=== PATIENT | male | born 1940 | race Caucasian/White ===

== ENCOUNTER 2016-10-01 20:57 | Inpatient (IN) | payer OTHER, BC ==
[~2016-10-01] VITALS: Ht 177.8 cm; Wt 75.9 kg
[2016-10-01] MEDS ORDERED: SODIUM CHLORIDE 0.9% 1000ML 1,000 ML IV SCH (21:47)
--- NOTE | 2016-10-01 22:15 | DIAGNOSTIC IMAGING REPORT ---
SINGLE VIEW CHEST CLINICAL HISTORY: Strokelike symptoms. Blurry vision. FINDINGS: An AP, portable, upright chest radiograph is obtained. No prior studies are available for comparison at the time of dictation. The examination is degraded by portable technique and patient rotation. The heart is enlarged and there is atherosclerotic calcification of the thoracic aorta. The pulmonary vasculature is noncongested. Nonspecific interstitial thickening is noted. There is minimal bibasilar atelectasis. No airspace consolidation, large pleural effusion, or pneumothorax is seen. The skeletal structures are osteopenic. The bony thorax is grossly intact. IMPRESSION: Cardiomegaly with no acute cardiopulmonary abnormality. Electronically signed by: Moo sEpinal M.D. 10/01/2016 10:14 PM Dictated Date/Time: 10/01/2016 10:13 PM
--- NOTE | 2016-10-01 22:58 | DIAGNOSTIC IMAGING REPORT ---
CT SCAN OF THE BRAIN WITHOUT IV CONTRAST CLINICAL HISTORY: Diplopia. Stroke like symptoms. COMPARISON STUDY: No priors. TECHNIQUE: Unenhanced axial CT scan of the brain is performed from the vertex to the skull base. CT DOSE: 679.75 mGycm FINDINGS: Brain parenchyma: There are age-related involutional changes noting [id number] patchy subcortical and periventricular microangiopathic change. There is no hemorrhage, mass effect, or evidence of acute territorial ischemia by CT criteria. Delacruz-white matter is preserved. No extra-axial fluid collection is seen. Ventricles, sulci, cisterns: Prominent secondary to involutional change. Intracranial vasculature: There is atherosclerotic calcification of the cavernous carotid arteries. Calvarium: Unremarkable. Sinuses and mastoids: The visualized paranasal sinuses are clear. The mastoid air cells are well pneumatized. Orbits: The bony orbits are grossly intact. IMPRESSION: There is no hemorrhage, mass effect, or evidence of acute territorial ischemia by CT criteria. Electronically signed by: Moo Espinal M.D. 10/01/2016 10:56 PM Dictated Date/Time: 10/01/2016 10:54 PM
[2016-10-01] MEDS ORDERED: AMLO-114 PO (23:04)
[2016-10-01] MEDS ORDERED: [UNRECOGNIZED DRUG - CODE] PO (23:04)
[2016-10-01] MEDS ORDERED: CHOL1000 PO (23:04)
[2016-10-01] MEDS ORDERED: MULT-513 PO (23:04)
[2016-10-01 23:41] LABS: BASO % 0.4 %; BASO ABS # 0.03 K/uL (0-0.2); COMPLETE YES; EOS % 4.4 %; HEMATOCRIT 37.2 % (42-52); IG% 0.3 %; LYMPH % 28.6 %; LYMPH ABS # 2.01 K/uL (1.2-3.4); MEAN CORPUSCULAR HEMOGLOBIN 30.3 pg (25-34); MEAN CORPUSCULAR HGB CONC 33.3 g/dl (32-36); MEAN PLATELET VOLUME 9.8 fL (7.4-10.4); MONO % 10.5 %; NEUT % 55.8 %; PLATELET COUNT 277 K/uL (130-400); RED BLOOD COUNT 4.09 M/uL (4.7-6.1); WHITE BLOOD COUNT 7.02 K/uL (4.8-10.8)
[2016-10-01 23:57] LABS: BLOOD UREA NITROGEN 21 mg/dl (7-18); BUN/CREATININE RATIO 22.6 (10-20); CARBON DIOXIDE 31 mmol/L (21-32); CHLORIDE 109 mmol/L (98-107); CREATININE 0.95 mg/dl (0.60-1.40); GLUCOSE 93 mg/dl (70-99); POTASSIUM 3.8 mmol/L (3.5-5.1); SODIUM 146 mmol/L (136-145)
[2016-10-02] VITALS (9 sets, daily range): BP systolic 133–162; BP diastolic 68–78; PULSE 61–73; TEMP 36.4–36.8; O2SAT 96–98; Ht 177.8 cm; Wt 75.9 kg
[2016-10-02 01:07] LABS: LYME DISEASE AB IGG POS (NEG); LYME DISEASE AB IGM POS (NEG)
[2016-10-02] MEDS ORDERED: CEFTRIAXONE SOD INJ 1 GM ADDVIAL IV STA (02:19)
--- NOTE | 2016-10-02 02:28 | EMERGENCY ROOM VISIT NOTE ---
History Report prepared by Bul: Humaira Jasmine Under the Supervision of: Dr. Larry Smiley M.D. First contact with patient: 21:32 Chief Complaint: RASH Stated Complaint: RASH AND BLURRED VISION History of Present Illness The patient is a 76 year old male who presents to the Emergency Room with complaints of persistent double vision that started 2 days ago. The double vision is worse with objects further away and when he looks to his right. The double vision resolves when he covers either eye. He states that his vision is blurry secondary to the double vision, but he denies any loss of vision. He denies difficulty swallowing, difficulty speaking, swelling in his tongue or throat, chest pain, shortness of breath, and one-sided numbness or weakness. The patient states that he started experiencing a generalized body rash 2 weeks ago. The rash is pruritic with the exception of the section on his left leg. He states that he had very large blisters on it that have now resolved. He states that the rash does not burn. He denies being in the [place] recently with potential exposures for contact with poison enrrique or poison oak. He was diagnosed with shingles 2 days ago at an Urgent Care in [place]. They prescribed him Valtrex and prednisone. He started to experience double vision 2 days ago after he took his first dose of those medications. He states that he did not take the medications today because he thought they might be contributing to his symptoms. The patient's adds that they were down visiting their son in [place] at the beginning of September and the patient was doing work in the attic. She states that the patient started to experience a headache, fever, and generalized body aches for 2 days after being in the attic. The symptoms resolved but then he went back into the attic and they came back for a day before they resolved again. However, the patient's states that the headache has not resolved. He describes the headache as a dull ache in the frontal region. The patient is on 10 mg of Amlodipine for hypertension. Source of History: patient, spouse/significant other (significant other) Onset: 2 days ago Position: eye (bilateral) Quality: other (double vision) Timing: other (persistent) Modifying Factors (Worsening): other (far away, looking to the right) Modifying Factors (Relieving): other (covering one eye) Associated Symptoms: + headache (dull ache), + rash (generalized, pruritic except on left leg, not burning), No SOB, No chest pain, No numbness (one-sided) , No weakness (one-sided) Note: blurry vision secondary to double vision, no loss of vision, no difficulty swallowing, no difficulty speaking, no swelling in his tongue or throat Review of Systems See HPI for pertinent positives & negatives. A total of 10 systems reviewed and were otherwise negative. Past Medical & Surgical Medical Problems: (1) Hypertension Family History Cancer Diabetes mellitus Heart disease Hypertension Lung disease Social History Smoking Status: Never Smoker Marital Status: Housing Status: lives with family Current/Historical Medications Scheduled Amlodipine (Norvasc), 10 MG PO DAILY Cholecalciferol (Vitamin D3), 1 TAB PO DAILY Multivitamins/Minerals (Mvi With Minerals), 1 TAB PO DAILY [Pomi-T], 1 TAB PO DAILY Allergies Coded Allergies: Hydrochlorothiazide (Verified Allergy, Intermediate, RASH, 10/01/16) Losartan (Verified Adverse Reaction, Intermediate, COUGH, 10/01/16) Physical Exam Vital Signs Date Time Temp Pulse Resp B/P Pulse Ox O2 Delivery O2 Flow Rate FiO2 10/02/16 02:12 64 16 159/78 98 Room Air 10/02/16 01:15 64 16 135/73 98 Room Air 10/02/16 00:17 68 21 155/78 99 Room Air 10/01/16 23:12 65 21 141/78 98 Room Air 10/01/16 22:57 69 19 165/72 98 Room Air 10/01/16 22:19 67 20 141/71 97 Room Air 10/01/16 22:14 67 10/01/16 21:54 97 Room Air 10/01/16 21:04 36.6 67 18 149/82 95 Room Air Physical Exam Constitutional: Vital signs reviewed. Eyes: Pupils are equal round reactive to light. Conjunctiva are noninjected. ENT: Pharynx is clear without erythema or exudate. Mucous membranes are moist. Neck supple without meningeal signs. Respiratory: Clear to auscultation bilaterally. Breath sounds are equal bilaterally. Cardiovascular: Regular rate and rhythm. No rubs or gallops. GI: Soft, nondistended and nontender. Bowel sounds are present. Musculoskeletal: No peripheral edema. No lower extremity tenderness. Integumentary: Diffuse urticarial rash to the trunk and extremities sparing the palms and soles. No mucosal lesions. No vesicles or bullae. There are areas of central clearing without a bull's-eye over the arms and legs. The rash appears coalesced over the trunk and the lower back. The rash is blanchable but not over the lower extremities distal to the knee. No purpura. Neurologic: The patient is awake and alert. Cranial nerves II-XII are intact except for right abducens nerve palsy. He has double vision with rightward gaze which resolves on leftward case. Motor is 5 out of 5 all extremities. Sensation is intact to light touch all extremities. Normal speech. Normal gait. No pronator drift. No limb ataxia. Normal visual larry tested by confrontation. Psychiatric: Normal affect. Medical Decision & Procedures ER Provider Diagnostic Interpretation: Radiology results as stated below per my review and the radiologist's interpretation: SINGLE VIEW CHEST FINDINGS: An AP, portable, upright chest radiograph is obtained. No prior studies are available for comparison at the time of dictation. The examination is degraded by portable technique and patient rotation. The heart is enlarged and there is atherosclerotic calcification of the thoracic aorta. The pulmonary vasculature is noncongested. Nonspecific interstitial thickening is noted. There is minimal bibasilar atelectasis. No airspace consolidation, large pleural effusion, or pneumothorax is seen. The skeletal structures are osteopenic. The bony thorax is grossly intact. IMPRESSION: Cardiomegaly with no acute cardiopulmonary abnormality. Electronically signed by: Moo Espinal M.D. 10/01/2016 10:14 PM Dictated Date/Time: 10/01/2016 10:[address] SCAN OF THE BRAIN WITHOUT IV CONTRAST FINDINGS: Brain parenchyma: There are age-related involutional changes noting [id number] patchy subcortical and periventricular microangiopathic change. There is no hemorrhage, mass effect, or evidence of acute territorial ischemia by CT criteria. Delacruz-white matter is preserved. No extra-axial fluid collection is seen. Ventricles, sulci, cisterns: Prominent secondary to involutional change. Intracranial vasculature: There is atherosclerotic calcification of the cavernous carotid arteries. Calvarium: Unremarkable. Sinuses and mastoids: The visualized paranasal sinuses are clear. The mastoid air cells are well pneumatized. Orbits: The bony orbits are grossly intact. IMPRESSION: There is no hemorrhage, mass effect, or evidence of acute territorial ischemia by CT criteria. Electronically signed by: Moo Espinal M.D. 10/01/2016 10:56 PM Dictated Date/Time: 10/01/2016 10:54 PM Laboratory Results 10/01/16 23:27 Red Blood Count 4.09, Mean Corpuscular Volume 91.0, Mean Corpuscular Hemoglobin 30.3, Mean Corpuscular Hemoglobin Concent 33.3, Mean Platelet Volume 9.8, Neutrophils (%) (Auto) 55.8, Lymphocytes (%) (Auto) 28.6, Monocytes (%) (Auto) 10.5, Eosinophils (%) (Auto) 4.4, Basophils (%) (Auto) 0.4, Neutrophils # (Auto ) 3.91, Lymphocytes # (Auto) 2.01, Monocytes # (Auto) 0.74, Eosinophils # (Auto ) 0.31, Basophils # (Auto) 0.03 10/01/16 23:27 Test 10/01/16 21:59 10/01/16 22:02 10/01/16 23:27 Bedside Glucose 114 mg/dl (70-99) Bedside Prothrombin Time INR 1.1 (0.9-1.1) White Blood Count 7.02 K/uL (4.8-10.8) Red Blood Count 4.09 M/uL (4.7-6.1) Hemoglobin 12.4 g/dL (14.0-18.0) Hematocrit 37.2 % (42-52) Mean Corpuscular Volume 91.0 fL (80-100) Mean Corpuscular Hemoglobin 30.3 pg (25-34) Mean Corpuscular Hemoglobin Concent 33.3 g/dl (32-36) Platelet Count 277 K/uL (130-400) Mean Platelet Volume 9.8 fL (7.4-10.4) Neutrophils (%) (Auto) 55.8 % Lymphocytes (%) (Auto) 28.6 % Monocytes (%) (Auto) 10.5 % Eosinophils (%) (Auto) 4.4 % Basophils (%) (Auto) 0.4 % Neutrophils # (Auto) 3.91 K/uL (1.4-6.5) Lymphocytes # (Auto) 2.01 K/uL (1.2-3.4) Monocytes # (Auto) 0.74 K/uL (0.11-0.59) Eosinophils # (Auto) 0.31 K/uL (0-0.5) Basophils # (Auto) 0.03 K/uL (0-0.2) RDW Standard Deviation 46.5 fL (36.4-46.3) RDW Coefficient of Variation 14.1 % (11.5-14.5) Immature Granulocyte % (Auto) 0.3 % Immature Granulocyte # (Auto) 0.02 K/uL (0.00-0.02) Prothrombin Time 11.0 SECONDS (9.0-12.0) Prothromb Time International Ratio 1.0 (0.9-1.1) Activated Partial Thromboplast Time 25.4 SECONDS (21.0-31.0) Partial Thromboplastin Ratio 1.0 Anion Gap 6.0 mmol/L (3-11) Est Creatinine Clear Calc Drug Dose 66.2 ml/min Estimated GFR () 88.5 Estimated GFR (Non- 76.4 BUN/Creatinine Ratio 22.6 (10-20) Calcium Level 8.0 mg/dl (8.5-10.1) Total Creatine Kinase 52 U/L (39-308) Creatine Kinase MB 2.6 ng/ml (0.5-3.6) Creatine Kinase MB Ratio 5.0 (0-3.0) Troponin I < 0.015 ng/ml (0-0.045) Lyme Disease IgG Antibody POS (NEG) Laboratory results as reviewed by me. Medications Administered Medications (Trade) Dose Ordered Sig/Lety Route Start Time Stop Time Status Last Admin Dose Admin Sodium Chloride (Nss 1000ml) 1,000 ml @ 50 mls/hr Q20H IV 10/01/16 21:47 10/31/16 21:46 10/01/16 23:00 50 MLS/HR ECG Indication: other (neuro symptoms) Rate (beats per minute): 66 Rhythm: sinus rhythm Findings: no acute ischemic change, other (APC) ED Course 2133: The patient was evaluated in room C6. A complete history and physical exam was performed. 2146: Ordered Sodium Chloride 1000 ml @ 50 mls/hr IV 3: I reassessed the patient and updated her on her test results. We are still waiting for his blood work. 3: Upon reevaluation, the patient appeared to be resting comfortably. I discussed tonight's findings with him. He wanted to go home initially and have a MRI tomorrow, but after discussion he has agreed to stay in the hospital. He verbalized agreement of the treatment plan. He will be evaluated for further management. 0004: I spoke with Dr. Galindo of the [facility]. We discussed the patient and his results. The patient will be further evaluated by him. 0143: I updated the patient on the remainder of his test results, including his positive Lyme test. 0151: I was going to consult Infectious Disease, but it is being covered by Dr. Duncan, who is a industrial production manager. Medical Decision this is a 76-year-old male who presents with a rash, headache and double vision.differential diagnosis includes intracranial hemorrhage, intracranial mass, CVA, metabolic derangement, meningitis, encephalitis. I did perform a limited focused review of portions of the patient's old chart on the electronic medical record. The patient has had no recent pertinent visits to this hospital. Medication Reconciliation: I attest that I have personally reviewed the patient' s current medication list. Blood Pressure Screening: Patient was found to have an elevated blood pressure and was referred to their primary doctor for recheck and further treatment. I did evaluate the patient as noted above. The patient has a diffuse rash which is not consistent with zoster. He does not have a slight rash but states that he did have symptoms consistent with Lyme several weeks ago when he was visiting [place] and cleaning out his son's attic. He also lives in an area with a lot of ticks but denies any tick bites. He has had a frontal headache for several weeks but does not have any meningeal signs. IV access was established. The patient was placed on a continuous surveillance system monitor. I did order and personally review the patient's 12-lead EKG and chest x-ray as described above. There is no evidence of heart block. I did order and review the patient's blood work as noted in the electronic medical record. Lyme testing did come back positive. I did order a CT of the head. I did review the images myself as well as the radiology report as described above. There is no evidence of CVA. I did discuss the test results with the patient. I did recommend hospitalization for further workup of his symptoms. I did not feel that a lumbar puncture was safe at this time given that he has the rash over his lower back where the spinal needle would be inserted. The exact cause of the rash is unclear at this time and I did not want to introduce infection by performing lumbar puncture. The rash is not typical for Lyme disease. I did attempt to call infectious disease but they were not available. I did order an MRI and MRA of the brain. I did discuss the case with Dr. Galindo who will admit the patient to the hospital. He agrees with not doing the lumbar puncture at this time and recommended we start him on ceftriaxone. I did discuss the plan with the patient and his . I did treat the patient with IV ceftriaxone. He will be hospitalized for further evaluation. Consults Time Called: 2146 Consulting Physician[facility] Return[facility] Call: [phone] Galindo of the [facility]. We discussed the patient and his results. The patient will be further evaluated by him. Impression Primary Impression: Diplopia Additional Impressions: Rash Lyme disease Scribe Attestation The scribe's documentation has been prepared under my direct and personally reviewed by me in its entirety. I confirm that the note above accurately reflects all work, treatment, procedures, and medical decision making performed by me. Departure Information Dispostion Being Evaluated By Hospitalist Referrals Donald Noel D.O. (PCP) Patient Instructions [facility] Problem Qualifiers
[2016-10-02] MEDS ORDERED: CEFTRIAXONE SOD INJ 2000 MG in DEXTROSE 5% 50ML IV STA (02:46)
[2016-10-02] MEDS ORDERED: SODIUM CHLORIDE 0.45% 1000ML 1,000 ML IV SCH (03:00)
[2016-10-02] MEDS ORDERED: LORAZEPAM 2 MG/ML 1 ML VIAL IV STA (03:15)
[2016-10-02] MEDS ORDERED: LORAZEPAM 2 MG/ML 1 ML VIAL ONE (03:15)
--- NOTE | 2016-10-02 03:15 | History and Physical ---
History & Physical Date & Time of Service: October 02, 2016 at 03:03 Chief Complaint: Rash And Blurred Vision Primary Care Physician: Donald Noel D.O. History of Present Illness Source: patient, family, hospital records 76 year old male with hypertension presents with double vision and generalized rash. Follows with Dr. Noel for PCP. Patient was at his usual state of health until last week of August 2016, two days after arriving in [place], patient developed flu like symptoms- fever, headache, malaise. Symptoms resolved after a few days but would intermittently recur. During the first week of September, patient noticed circular rash on his chest and back, which later on moved and affected his arms, legs, abdomen. Two days ago, patient started to experience double vision but no other focal neurologic deficits or confusion. Denies joint pains. At the ER, CT head was unremarkable. Lyme screen was positive. He was started on Ceftriaxone IV. On exam, patient seen resting comfortably in bed, somewhat anxious. Has mild headache, no chest pain, dyspnea, palpitations, dizziness. No other symptoms. Past Medical/Surgical History Medical Problems: (1) Hypertension Status: Chronic Family History Cancer Diabetes mellitus Heart disease Hypertension Lung disease Social History Smoking Status: Never Smoker Smokeless Tobacco Use: No Alcohol Use: none Drug Use: none Marital Status: Allergies Coded Allergies: Hydrochlorothiazide (Verified Allergy, Intermediate, RASH, 10/01/16) Losartan (Verified Adverse Reaction, Intermediate, COUGH, 10/01/16) Home Medications Scheduled Amlodipine (Norvasc), 10 MG PO DAILY Cholecalciferol (Vitamin D3), 1 TAB PO DAILY Multivitamins/Minerals (Mvi With Minerals), 1 TAB PO DAILY [Pomi-T], 1 TAB PO DAILY Review of Systems Constitutional- (+) as noted above Eyes- (+) as noted above ENT- no sinus drainage; no pharyngitis Pulmonary- no cough, no wheezing, no shortness of breath Cardiac- no chest pain, no palpitations, no orthopnea, no dependent edema GI- no nausea, no vomiting, no diarrhea, no melena, no hematochezia - no dysuria, no hematuria Musculoskeletal- no arthralgias, no myalgias Derm- (+) as noted above Hematologic- no unusual bruising, no unusual bleeding Lymphatics- no adenopathy Endocrine- no polyuria or polydipsia; no heat or cold intolerance Neuro- no headaches, no focal neurologic symptoms Psych- no anxiety, no depression Physical Exam Vital Signs Date Time Temp Pulse Resp B/P Pulse Ox O2 Delivery O2 Flow Rate FiO2 10/02/16 02:12 64 16 159/78 98 Room Air 10/02/16 01:15 64 16 135/73 98 Room Air 10/02/16 00:17 68 21 155/78 99 Room Air 10/01/16 23:12 65 21 141/78 98 Room Air 10/01/16 22:57 69 19 165/72 98 Room Air 10/01/16 22:19 67 20 141/71 97 Room Air 10/01/16 22:14 67 10/01/16 21:54 97 Room Air 10/01/16 21:04 36.6 67 18 149/82 95 Room Air General Appearance: WD/WN, no apparent distress Head: normocephalic, atraumatic Eyes: PERRL, sclerae normal, + pertinent finding (poor lateral ocular movement right) ENT: normal ENT inspection, hearing grossly normal, pharynx normal Neck: supple, no adenopathy, thyroid normal, no JVD Respiratory/Chest: chest non-tender, lungs clear, normal breath sounds, no respiratory distress, no accessory muscle use Cardiovascular: regular rate, rhythm, no edema, no gallop, no JVD, no murmur, normal peripheral pulses Abdomen/GI: normal bowel sounds, non tender, soft Back: normal inspection, no CVA tenderness Extremities/Musculoskelatal: normal inspection, no calf tenderness, normal capillary refill, no pedal edema Neurologic/Psych: no motor/sensory deficits, alert, normal mood/affect, oriented x 3, + abnormal landscaping supervisor II-XII (diplopia, limited lateral eye movement, right) Skin: normal color, + pertinent finding ((+) diffuse maculopapular lesions on the lower back, chest, abdomen, forearms, legs) Lymphatic: no adenopathy Diagnostics Laboratory Results Results Past 24 Hours Test 10/01/16 21:59 10/01/16 22:02 10/01/16 23:27 Range/Units Bedside Glucose 114 70-99 mg/dl Bedside Prothrombin Time INR 1.1 0.9-1.1 White Blood Count 7.02 4.8-10.8 K/uL Red Blood Count 4.09 4.7-6.1 M/uL Hemoglobin 12.4 14.0-18.0 g/dL Hematocrit 37.2 42-52 % Mean Corpuscular Volume 91.0 80-100 fL Mean Corpuscular Hemoglobin 30.3 25-34 pg Mean Corpuscular Hemoglobin Concent 33.3 32-36 g/dl Platelet Count 277 130-400 K/uL Mean Platelet Volume 9.8 7.4-10.4 fL Neutrophils (%) (Auto) 55.8 % Lymphocytes (%) (Auto) 28.6 % Monocytes (%) (Auto) 10.5 % Eosinophils (%) (Auto) 4.4 % Basophils (%) (Auto) 0.4 % Neutrophils # (Auto) 3.91 1.4-6.5 K/uL Lymphocytes # (Auto) 2.01 1.2-3.4 K/uL Monocytes # (Auto) 0.74 0.11-0.59 K/uL Eosinophils # (Auto) 0.31 0-0.5 K/uL Basophils # (Auto) 0.03 0-0.2 K/uL RDW Standard Deviation 46.5 36.4-46.3 fL RDW Coefficient of Variation 14.1 11.5-14.5 % Immature Granulocyte % (Auto) 0.3 % Immature Granulocyte # (Auto) 0.02 0.00-0.02 K/uL Prothrombin Time 11.0 9.0-12.0 SECONDS Prothromb Time International Ratio 1.0 0.9-1.1 Activated Partial Thromboplast Time 25.4 21.0-31.0 SECONDS Partial Thromboplastin Ratio 1.0 Sodium Level 146 136-145 mmol/L Potassium Level 3.8 3.5-5.1 mmol/L Chloride Level 109 98-107 mmol/L Carbon Dioxide Level 31 21-32 mmol/L Anion Gap 6.0 3-11 mmol/L Blood Urea Nitrogen 21 7-18 mg/dl Creatinine 0.95 0.60-1.40 mg/dl Est Creatinine Clear Calc Drug Dose 66.2 ml/min Estimated GFR () 88.5 Estimated GFR (Non- 76.4 BUN/Creatinine Ratio 22.6 10-20 Random Glucose 93 70-99 mg/dl Calcium Level 8.0 8.5-10.1 mg/dl Total Creatine Kinase 52 39-308 U/L Creatine Kinase MB 2.6 0.5-3.6 ng/ml Creatine Kinase MB Ratio 5.0 0-3.0 Troponin I < 0.015 0-0.045 ng/ml Lyme Disease IgG Antibody POS NEG Lyme Disease IgM Antibody POS NEG Diagnostic Radiology CT head There is no hemorrhage, mass effect, or evidence of acute territorial ischemia by CT criteria. EKG HR 66, sinus rhythm with PVCs Impression Assessment and Plan 76 year old male with hypertension presents with double vision and generalized rash. POSSIBLE EARLY DISSEMINATED LYME DISEASE - (+) rash, diplopia - Lyme screen positive - Ceftriaxone 2gIV daily - ID and Neuro consulted HYPERTENSION continue Amlodipine DVT prophylaxis SCDs Full code per patient Disposition anticipate d/c home when medically stable VTE Prophylaxis VTE Risk Assessment Done? Y/N: Yes Risk Level: Low
[2016-10-02] MEDS ORDERED: GADAVIST IV PRN (05:00)
[2016-10-02] MEDS: CEROVITE ADV FORMULA TAB PO SCH (08:45)
[2016-10-02] MEDS: AMLODIPINE BESYLATE 5 MG TAB PO SCH (08:45)
--- NOTE | 2016-10-02 09:26 | Progress Note ---
Progress Note Date of Service October 02, 2016. Progress Note ID Consult Dictated #[id number] A/P: 1. Lyme Disease -continue rocephin for now -await MRI/neuro eval -If no neuro involvement could transition to po doxy upon d/c for total 28 days -thank you
[2016-10-02 10:00] LABS: BUN/CREATININE RATIO 17.7 (10-20); CALCIUM 8.4 mg/dl (8.5-10.1); CREATININE 0.96 mg/dl (0.60-1.40); POTASSIUM 3.7 mmol/L (3.5-5.1)
--- NOTE | 2016-10-02 10:01 | DIAGNOSTIC IMAGING REPORT ---
ADDENDUM Addendum: The matter T2 hyperintense foci are nonspecific but there are numerous scattered foci of signal intensity which affects the subcortical U fibers. This distribution is not typical for small vessel disease and raises the possibility of a demyelinating process and differential considerations include an infectious disease such as Lyme disease or less likely ADEM/multiple sclerosis. Discussed with Dr. Farrell at time of dictation. Electronically signed by: Triston Gunderson M.D. 10/02/2016 11:16 AM Dictated Date/Time: 10/02/2016 10:06 AM ORIGINAL REPORT MRI OF THE BRAIN WITHOUT AND WITH IV CONTRAST CLINICAL HISTORY: Blurred vision. Rash. Evaluate for stroke or encephalitis. COMPARISON STUDY: CT October 02, 2016. TECHNIQUE: Utilizing a 1.5 Merna magnet and dedicated coil, multiplanar, multiecho imaging of the brain was performed pre and postcontrast administration. IV administration of 8 mL of Gadavist contrast was uneventful. FINDINGS: There are no areas of restricted diffusion. No acute intracranial hemorrhage, midline shift or mass effect is present. No intracranial masses or pathologic enhancement is identified. Ventricular system is unremarkable for age. Moderate white matter T2 hyperintense foci suggest small vessel disease. Basilar cisterns are patent. There are no extra axial collections. There is minimal mucosal thickening of the ethmoid sinuses. Flow-voids for the major intracranial vessels are present. IMPRESSION: 1. No acute intracranial findings. 2. No intracranial masses or pathologic enhancement. 3. Moderate white matter T2 hyperintense foci. While nonspecific, these statistically reflect small vessel disease. Electronically signed by: Triston Gunderson M.D. 10/02/2016 10:00 AM Dictated Date/Time: 10/02/2016 9:56 AM
--- NOTE | 2016-10-02 10:06 | DIAGNOSTIC IMAGING REPORT ---
MRA OF THE INTRACRANIAL CIRCULATION WITHOUT CONTRAST CLINICAL HISTORY: Double vision. Rash. COMPARISON STUDY: None. TECHNIQUE: Utilizing a 1.5 Merna magnet and 3-D [id number] technique, unenhanced MRA of the intracranial circulation was obtained. FINDINGS: The bilateral M1, M2, A1 and A2 segments are patent. There is no abrupt vessel cut off. No aneurysm is identified within the intracranial circulation. There is no significant stenosis within the major intracranial vessels. IMPRESSION: Unremarkable MRA of the intracranial circulation. Electronically signed by: Triston Gunderson M.D. 10/02/2016 10:05 AM Dictated Date/Time: 10/02/2016 10:01 AM
--- NOTE | 2016-10-02 10:55 | DIAGNOSTIC IMAGING REPORT ---
MRA OF THE NECK WITH AND WITHOUT CONTRAST CLINICAL HISTORY: Double vision. COMPARISON STUDY: None. TECHNIQUE: Unenhanced and contrast-enhanced MRA of the neck was performed. Injection of 8 mL of Magnevist IV was uneventful. NASCET criteria were utilized to estimate the degree of carotid stenosis. FINDINGS: There is no significant stenosis within the bilateral common carotid, internal carotid or the vertebral arteries. There is no evidence for dissection. Major vasculature of the neck is patent. IMPRESSION: Unremarkable MRA of the neck. No significant stenosis. Electronically signed by: Triston Gunderson M.D. 10/02/2016 10:54 AM Dictated Date/Time: 10/02/2016 10:53 AM
--- NOTE | 2016-10-02 11:47 | Progress Note ---
Internal Med Progress Note Date of Service: October 02, 2016. Provider Documentation: SUBJECTIVE: Seen and examined at bedside. States having frontal headache, persistent double vision. Also states having itchiness of the rash. Denies chest pain, SOB. offers no other complaints. Mental status at baseline. OBJECTIVE: Vital Signs-as noted below Physical Exam: Vitals signs as noted above General Appearance:Moderately built and nourished, no apparent distress Head: normocephalic, Atraumatic Eyes: normal inspection, EOMI, PERRL Neck: supple, Trachea midline Respiratory/Chest: Normal breath sounds, CTA Cardiovascular: S1, S2, No murmur Abdomen/GI:Soft, Non tender, Bowel sounds present Extremities/Musculoskelatal:normal inspection, no edema Neurologic/Psych:AAOX3, grossly no focal neurological deficits Skin:diffuse maculopapular rash on the lower back, chest, abdomen, forearms, legs Lab data as noted below. ASSESSMENT & PLAN: Patient is a 76 yr old male with hypertension presents with double vision and generalized rash. POSSIBLE EARLY DISSEMINATED LYME DISEASE Presents with rash, diplopia Lyme screen positive Continue Ceftriaxone 2g IV daily Appreciate ID input Neuro consulted MRI brain:findings suggestive of demyelinating process Vs infectious: Likely secondary to Lyme disease HYPERTENSION continue Amlodipine DVT Px SCDs Code Status: Full code Disposition Plan to discharge home when medically stable Vital Signs: Date Time Temp Pulse Resp B/P Pulse Ox O2 Delivery O2 Flow Rate FiO2 10/02/16 11:13 36.4 63 20 154/78 97 Room Air 10/02/16 08:00 98 Room Air 10/02/16 07:09 36.5 65 18 162/70 98 Room Air 10/02/16 04:45 36.5 64 18 151/76 97 Room Air 10/02/16 04:40 62 16 167/82 95 10/02/16 03:05 62 16 167/82 95 Room Air 10/02/16 02:12 64 16 159/78 98 Room Air 10/02/16 01:15 64 16 135/73 98 Room Air 10/02/16 00:17 68 21 155/78 99 Room Air 10/01/16 23:12 65 21 141/78 98 Room Air 10/01/16 22:57 69 19 165/72 98 Room Air 10/01/16 22:19 67 20 141/71 97 Room Air 10/01/16 22:14 67 10/01/16 21:54 97 Room Air 10/01/16 21:04 36.6 67 18 149/82 95 Room Air Lab Results: Results Past 24 Hours Test 10/01/16 21:59 10/01/16 22:02 10/01/16 23:27 10/02/16 09:22 Range/Units Bedside Glucose 114 70-99 mg/dl Bedside Prothrombin Time INR 1.1 0.9-1.1 White Blood Count 7.02 4.8-10.8 K/uL Red Blood Count 4.09 4.7-6.1 M/uL Hemoglobin 12.4 14.0-18.0 g/dL Hematocrit 37.2 42-52 % Mean Corpuscular Volume 91.0 80-100 fL Mean Corpuscular Hemoglobin 30.3 25-34 pg Mean Corpuscular Hemoglobin Concent 33.3 32-36 g/dl Platelet Count 277 130-400 K/uL Mean Platelet Volume 9.8 7.4-10.4 fL Neutrophils (%) (Auto) 55.8 % Lymphocytes (%) (Auto) 28.6 % Monocytes (%) (Auto) 10.5 % Eosinophils (%) (Auto) 4.4 % Basophils (%) (Auto) 0.4 % Neutrophils # (Auto) 3.91 1.4-6.5 K/uL Lymphocytes # (Auto) 2.01 1.2-3.4 K/uL Monocytes # (Auto) 0.74 0.11-0.59 K/uL Eosinophils # (Auto) 0.31 0-0.5 K/uL Basophils # (Auto) 0.03 0-0.2 K/uL RDW Standard Deviation 46.5 36.4-46.3 fL RDW Coefficient of Variation 14.1 11.5-14.5 % Immature Granulocyte % (Auto) 0.3 % Immature Granulocyte # (Auto) 0.02 0.00-0.02 K/uL Prothrombin Time 11.0 9.0-12.0 SECONDS Prothromb Time International Ratio 1.0 0.9-1.1 Activated Partial Thromboplast Time 25.4 21.0-31.0 SECONDS Partial Thromboplastin Ratio 1.0 Sodium Level 146 143 136-145 mmol/L Potassium Level 3.8 3.7 3.5-5.1 mmol/L Chloride Level 109 107 98-107 mmol/L Carbon Dioxide Level 31 31 21-32 mmol/L Anion Gap 6.0 5.0 3-11 mmol/L Blood Urea Nitrogen 21 17 7-18 mg/dl Creatinine 0.95 0.96 0.60-1.40 mg/dl Est Creatinine Clear Calc Drug Dose 66.2 65.5 ml/min Estimated GFR () 88.5 87.4 Estimated GFR (Non- 76.4 75.4 BUN/Creatinine Ratio 22.6 17.7 10-20 Random Glucose 93 127 70-99 mg/dl Calcium Level 8.0 8.4 8.5-10.1 mg/dl Total Creatine Kinase 52 39-308 U/L Creatine Kinase MB 2.6 0.5-3.6 ng/ml Creatine Kinase MB Ratio 5.0 0-3.0 Troponin I < 0.015 0-0.045 ng/ml Lyme Disease IgG Antibody POS NEG Lyme Disease IgM Antibody POS NEG
--- NOTE | 2016-10-02 13:26 | PROGRESS NOTE ---
DATE: 10/02/2016 REFERRING PHYSICIAN: Dr. Farrell. HISTORY OF PRESENT ILLNESS: Gilles is a 76 years old, is in the process of moving his primary residence from [place] to [place] and does spend a fair amount of time in the [place] area in his new home. He was visiting in [place] and 2 days after arriving there developed a flu-like illness with fever, headaches, malaise and then started to have a skin rash which began actually in the first week of September. It started on the chest and back and later moved and affected his arms and legs and abdomen, was pruritic and there may have been a bull's eye quality to it at one point. He then developed diplopia which actually began after he returned to [place] and he received some valacyclovir for the presumptive diagnosis of shingles in an emergency carecenter in [place]. He then came to [place], presented to the Emergency Room as this is where his medical care has been rendered in the past and was evaluated. ALyme screen was positive. Subsequent MRI scan with contrast has been negative and he has been placed on ceftriaxone IV. He still has double vision and headaches and little stiffness of his neck and otherwise feels well. The skin rash is still present and pruritic, but he has only had one dose of ceftriaxone. He has never had an illness like this before. He does not recall having a tick bite, but he is familiar with the fact that many patients do not recall the tick bite. He has had no arthritis, no palpitations, no signs that might indicate some myocardial involvement. PAST MEDICAL HISTORY: Reveals hypertension which is the only issue. FAMILY HISTORY: Positive for diabetes, heart disease, hypertension, lung disease. SOCIAL HISTORY: Reveals him to be retired. He does not use alcohol. He has never been a smoker. He is and again is in transition to [place] and [place]. ALLERGIES: HE HAS ALLERGIES TO HYDROCHLOROTHIAZIDE AND LOSARTAN. MEDICATIONS AT HOME: Include Norvasc, cholecalciferol, multivitamins and otherwise none and he does not take even an aspirin a day. REVIEW OF SYSTEMS: Prior to the onset of this illness, was unremarkable, but now he has a little headache. He has double vision. He has some stiffness of his neck. He has a skin rash. He has not had any significant weight loss. He has no other issues involving the head, eyes, ears, nose and throat, cardiovascular, pulmonary, gastrointestinal, genitourinary or musculoskeletal systems. PHYSICAL EXAMINATION: VITAL SIGNS: In the ER, his blood pressure 159/78, pulse was 64, respirations were 16. He was afebrile. GENERAL: He appeared well-developed, well nourished. He had no cranial deformities. HEENT: He had a right lateral rectus palsy with lack of a abduction on attempts at rightward gaze. EXTREMITIES: The extremities were covered by a maculopapular rash, more prominent in the lower extremities, but present in the back as well. There was no particular bull's eye pattern. There was no particular erythema, except over the back where the margins of the rash were a little ill-defined. He had no peripheral edema. Peripheral pulses were fine. ABDOMEN: There were no enlarged liver, or spleen. CARDIAC AND PULMONARY: Normal. NEUROLOGIC: Today neurologically, he is awake, alert, oriented in 3 spheres. Cranial nerves are intact with the exception of lateral rectus palsy. Facial motility and strength is normal. Facial sensation is normal. Tongue protrudes in the midline. Speech is clear. Gait is absolutely normal. There is no spasticity or ataxia. He has no tremor, tics, choreiform activity, drift or pronation sign. Reflexes are 1+ symmetrical. Toes are downgoing. No Shay's signs are seen. Strength is normal and sensation is intact. LABORATORY STUDIES: Significant only for the positive Lyme screen, both IgG and IgM. MRI as noted above shows some nonspecific white matter changes compatible with his age. No meningeal enhancement and nothing in the region of the nerve exit from the brainstem or along its course that would suggest a compression or active inflammation of the nerve itself or in adjacent structures of the skull base or cavernous sinus This may well have been Lyme disease. He could have picked up a tick bite in [place] where the disease is endemic and the latency period between this presumptive exposure and the onset of symptoms 3 weeks later in [place] makes good sense. 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 My recommendations would be to continue the antibiotics at this point and that we get a lumbar puncture at some time during his hospital course, ideally by radiology under fluoro, so we get a clean tap. This will give time as well to see if the skin rash which does involve the lumbar area athrough which a lumbar puncture would have to be performed and possibly introduce a non lyme related infectious process such as bacterial cellulitis. I would like to see what infectious disease has to say. Their note has not been typed. It may be of values as well to have dermatology evaluate the skin lesion as the appearance to me is atypical. I will call back to Dr. Farrell tomorrow about more suggestions and would like to see how the patient has done after a few more courses of ceftriaxone in terms of the symptoms he has ie the headache , stiff neck and how the rash evolves. He may need testing for other tick borne illnesses as well. BRETT
--- NOTE | 2016-10-02 14:58 | INFECT. DISEASE CONSULTATION ---
DATE OF CONSULTATION: 10/02/2016 REQUESTING PHYSICIAN: Prosper Galindo MD HISTORY OF PRESENT ILLNESS: This is a 76-year-old gentleman who was admitted to the hospital with rash. He also is complaining of diffuse arthralgias and myalgias. He did notice in early September that he had a rash on his back and chest which did at the description of bull's-eye rash. He then continued to have additional lesions on his arms and legs. He does admit to multiple recent tick bites. His Lyme screen is positive and confirmatory testing is pending. He has been afebrile since admission. His only complaint today is of headache. He denies any neck pain. He states his other arthralgias have diminished. He was placed on Rocephin and is tolerating this well. All remaining review of systems are reviewed and are unremarkable. PAST MEDICAL HISTORY: Hypertension. FAMILY HISTORY: Noncontributory. SOCIAL HISTORY: Negative for drug use, tobacco use or alcohol use. ALLERGIES: HYDROCHLOROTHIAZIDE AND LOSARTAN. CURRENT MEDICATIONS: Rocephin, Norvasc, multivitamins, Gadavist, Tylenol. PHYSICAL EXAMINATION: VITAL SIGNS: He is afebrile, pulse 65, respiratory rate 18, blood pressure 162/70, oxygen saturation is 98% on room air. GENERAL: He is awake, alert and oriented x3. He is in no acute distress. HEENT: Mucous membranes are moist. Extraocular muscles are intact. There is no nuchal rigidity. HEART: Regular. LUNGS: Clear. ABDOMEN: Soft, nontender. There is pitting trace edema bilaterally. There are diffuse vesicular rashes on the upper extremities as well as the legs. LABORATORY STUDIES: CBC reveals a white blood cell count of 7.0, hemoglobin 12.4, hematocrit 37.2, and platelets are 277. Chemistry panel reveals a sodium of 146, potassium 3.8, chloride 109, bicarbonate 31, BUN 21, creatinine 0.9, glucose is 114. Lyme screen is positive, confirmatory testing is pending. An MRI of the brain is pending. A CAT scan of the head is unremarkable. ASSESSMENT AND PLAN: Likely Lyme disease. He is on Rocephin and can remain on this pending the results of his MRI. If there is no indication of neurologic involvement, he can be changed to doxycycline to complete a 28-day course.
[2016-10-03] VITALS (7 sets, daily range): BP systolic 134–162; BP diastolic 76–82; PULSE 52–69; TEMP 36.7–37; O2SAT 96–97
[2016-10-03] MEDS: CEFTRIAXONE SOD INJ 2,000 MG in DEXTROSE 5% 50ML 50 ML IV SCH (03:07)
[2016-10-03 06:21] LABS: BASO % 1.1 %; BASO ABS # 0.08 K/uL (0-0.2); COMPLETE YES; EOS % 4.8 %; IG% 0.3 %; LYMPH % 41.3 %; LYMPH ABS # 3.02 K/uL (1.2-3.4); MEAN CELL VOLUME 90.5 fL (80-100); MEAN CORPUSCULAR HGB CONC 33.2 g/dl (32-36); MONO % 11.4 %; NEUT % 41.1 %; PLATELET COUNT 270 K/uL (130-400); WHITE BLOOD COUNT 7.31 K/uL (4.8-10.8)
[2016-10-03 06:57] LABS: BUN/CREATININE RATIO 15.1 (10-20); CALCIUM 8.1 mg/dl (8.5-10.1); CREATININE 0.83 mg/dl (0.60-1.40); POTASSIUM 3.8 mmol/L (3.5-5.1)
[2016-10-03] MEDS: AMLODIPINE BESYLATE 5 MG TAB PO SCH (07:34)
[2016-10-03] MEDS: CEROVITE ADV FORMULA TAB PO SCH (07:34)
[2016-10-03] MEDS: ACETAMINOPHEN 325 MG TAB PO PRN (07:35)
--- NOTE | 2016-10-03 08:48 | Progress Note ---
Internal Med Progress Note Date of Service: October 03, 2016. Provider Documentation: SUBJECTIVE: Seen and examined at bedside. States rash is getting better. Has persistent double vision. Headache resolved. Denies chest pain, SOB, no weakness, numbness. offers no other complaints. Mental status at baseline. OBJECTIVE: Vital Signs-as noted below Physical Exam: Vitals signs as noted above General Appearance:Moderately built and nourished, no apparent distress Head: normocephalic, Atraumatic Eyes: normal inspection, EOMI, PERRL Neck: supple, Trachea midline Respiratory/Chest: Normal breath sounds, CTA Cardiovascular: S1, S2, No murmur Abdomen/GI:Soft, Non tender, Bowel sounds present Extremities/Musculoskelatal:normal inspection, no edema Neurologic/Psych:AAOX3, grossly no focal neurological deficits Skin:diffuse maculopapular rash on the lower back, chest, abdomen, forearms, legs Lab data as noted below. ASSESSMENT & PLAN: Patient is a 76 yr old male with hypertension presents with double vision and generalized rash. POSSIBLE EARLY DISSEMINATED LYME DISEASE Presents with rash, diplopia Lyme screen positive Continue Ceftriaxone 2g IV daily Appreciate ID, Neuro input MRI brain:findings suggestive of demyelinating process Vs infectious: Likely secondary to Lyme disease Will consider dermatology consult if rash shows no resolution serological work up for lyme pending HYPERTENSION continue Amlodipine DVT Px SCDs Code Status: Full code Disposition Plan to discharge home when medically stable Vital Signs: Date Time Temp Pulse Resp B/P Pulse Ox O2 Delivery O2 Flow Rate FiO2 10/03/16 07:17 36.7 69 18 162/82 97 Room Air 10/03/16 04:14 37.0 67 20 147/77 96 Room Air 10/03/16 04:00 Room Air 10/03/16 00:00 Room Air 10/02/16 23:46 36.6 65 20 147/72 96 Room Air 10/02/16 20:00 97 Room Air 10/02/16 19:06 36.8 73 18 133/69 96 Room Air 10/02/16 16:00 97 Room Air 10/02/16 15:15 36.7 68 20 147/68 97 Room Air 10/02/16 12:00 Room Air 10/02/16 11:13 36.4 63 20 154/78 97 Room Air Lab Results: Results Past 24 Hours Test 10/02/16 09:22 10/03/16 05:59 Range/Units Sodium Level 143 144 136-145 mmol/L Potassium Level 3.7 3.8 3.5-5.1 mmol/L Chloride Level 107 107 98-107 mmol/L Carbon Dioxide Level 31 30 21-32 mmol/L Anion Gap 5.0 7.0 3-11 mmol/L Blood Urea Nitrogen 17 13 7-18 mg/dl Creatinine 0.96 0.83 0.60-1.40 mg/dl Est Creatinine Clear Calc Drug Dose 65.5 75.7 ml/min Estimated GFR () 87.4 97.7 Estimated GFR (Non- 75.4 84.3 BUN/Creatinine Ratio 17.7 15.1 10-20 Random Glucose 127 97 70-99 mg/dl Calcium Level 8.4 8.1 8.5-10.1 mg/dl White Blood Count 7.31 4.8-10.8 K/uL Red Blood Count 4.20 4.7-6.1 M/uL Hemoglobin 12.6 14.0-18.0 g/dL Hematocrit 38.0 42-52 % Mean Corpuscular Volume 90.5 80-100 fL Mean Corpuscular Hemoglobin 30.0 25-34 pg Mean Corpuscular Hemoglobin Concent 33.2 32-36 g/dl Platelet Count 270 130-400 K/uL Mean Platelet Volume 10.0 7.4-10.4 fL Neutrophils (%) (Auto) 41.1 % Lymphocytes (%) (Auto) 41.3 % Monocytes (%) (Auto) 11.4 % Eosinophils (%) (Auto) 4.8 % Basophils (%) (Auto) 1.1 % Neutrophils # (Auto) 3.01 1.4-6.5 K/uL Lymphocytes # (Auto) 3.02 1.2-3.4 K/uL Monocytes # (Auto) 0.83 0.11-0.59 K/uL Eosinophils # (Auto) 0.35 0-0.5 K/uL Basophils # (Auto) 0.08 0-0.2 K/uL RDW Standard Deviation 46.4 36.4-46.3 fL RDW Coefficient of Variation 14.1 11.5-14.5 % Immature Granulocyte % (Auto) 0.3 % Immature Granulocyte # (Auto) 0.02 0.00-0.02 K/uL
[2016-10-03] MEDS: HYDROCORTISONE 1% CR 30 GM TUBE EXT PRN (11:06)
--- NOTE | 2016-10-03 12:09 | PROGRESS NOTE ---
DATE: 10/03/2016 Gilles looks better today. His headache is less severe. He had responded to some Tylenol and he is now virtually headache free. The stiffness of his neck is better than the skin rash in my eye and he seems to be improving, all in association with treatment with ceftriaxone. He still has double vision, but by my examination the excursion of the right lateral rectus to the right is greater than it was yesterday. Yesterday, it stopped essentially at the midline and now it is probably about 20 degrees past midline, so I am optimistic that this too will improve. The initial MRI report suggested nothing out of the ordinary. The white matter lesions were felt to be compatible with age and vascular factors, but there has been an addendum filed and now the report is felt to be possibly consistent with demyelinating disease, acute disseminated encephalomyelitis, etc., although without contrast enhancement of these lesions, I find the latter a little hard to believe. And while now looking at the images, I am not that impressed that this is anything more than a 76-year-old man's brain. At this point, unfortunately, I think we are going to have to go ahead with a lumbar puncture unless radiology feels uncomfortable placing the lumbar needle through the Lyme or presumptive Lyme associated rash in the lumbar area. I talked with Dr. Farrell about this. He is going to put an order in for the CSF to be done tomorrow under fluoro and infectious disease is going to follow up again, I suspect tomorrow. I do not know if we get dermatology in to the hospital to look at this rash. I have never had sufficient experience with Lyme disease cutaneous manifestations to say it is typical or atypical, and there may be other entities that would need considered in this setting. There is an unusual tick[place]borne disorder [place] called [place] Tick Associated Rash, but systemic involvement in it and BAND TIER involvement is most unusual in most of the cases Whatever the case, I will leave it to infectious disease's recommendation regarding any further testing for tick borne infections. At this point, then I would favor lumbar puncture event though CSF probably is not going to grow anything, but there still should be some pleocytosis and if this is present and we then have the presumptive diagnosis of central nervous system involvement with what is likely going to be Lyme disease, and would have justification for maintaining this man on IV antibiotics from 3 weeks to 4 weeks' time depending on the current recommendations. Another approach in course would be to simply assume that this is the case clinically and go ahead with a full course of IV ceftriaxone and not be tempted to switch over to doxycycline orally. In that case, we would not need spinal fluid confirmation for the presence of BAND TIER or meningeal involvement. We will see how things monk out, but for now, I will continue ceftriaxone. He seems to be getting better and hopefully the nerve palsy will also be better tomorrow when I see him on rounds. BRETT
[2016-10-04] VITALS: BP 139/70; PULSE 61; TEMP 36.7; O2SAT 96
[2016-10-04] MEDS: CEFTRIAXONE SOD INJ 2,000 MG in DEXTROSE 5% 50ML 50 ML IV SCH (03:23)
[2016-10-04] MEDS: HYDROCORTISONE 1% CR 30 GM TUBE EXT PRN (03:27)
[2016-10-04] MEDS: ACETAMINOPHEN 325 MG TAB PO PRN ×2 (03:27→19:44)
[2016-10-04 03:34] VITALS: BP 148/67; PULSE 64; TEMP 36.4; O2SAT 95
[2016-10-04 07:11] LABS: BASO % 0.6 %; BASO ABS # 0.04 K/uL (0-0.2); COMPLETE YES; EOS % 4.8 %; HEMATOCRIT 36.8 % (42-52); IG% 0.6 %; LYMPH % 44.7 %; LYMPH ABS # 3.08 K/uL (1.2-3.4); MEAN CELL VOLUME 91.3 fL (80-100); MEAN CORPUSCULAR HEMOGLOBIN 30.8 pg (25-34); MEAN CORPUSCULAR HGB CONC 33.7 g/dl (32-36); MEAN PLATELET VOLUME 10.5 fL (7.4-10.4); MONO % 9.4 %; NEUT % 39.9 %; PLATELET COUNT 248 K/uL (130-400); RED BLOOD COUNT 4.03 M/uL (4.7-6.1); WHITE BLOOD COUNT 6.89 K/uL (4.8-10.8)
[2016-10-04 07:28] VITALS: BP 161/83; PULSE 58; TEMP 36.5; O2SAT 97
[2016-10-04 07:44] LABS: BUN/CREATININE RATIO 22.9 (10-20); CALCIUM 8.1 mg/dl (8.5-10.1); CREATININE 0.89 mg/dl (0.60-1.40); POTASSIUM 3.6 mmol/L (3.5-5.1)
[2016-10-04] MEDS: CEROVITE ADV FORMULA TAB PO SCH (08:50)
[2016-10-04] MEDS: AMLODIPINE BESYLATE 5 MG TAB PO SCH (08:51)
--- NOTE | 2016-10-04 09:35 | Progress Note ---
Internal Med Progress Note Date of Service: October 04, 2016. Provider Documentation: SUBJECTIVE: Seen and examined at bedside. Rash continues to resolve slowly. Reports persistent double vision. Denies chest pain, SOB, no weakness, numbness. offers no other complaints. Family and patient concerned about safety of LP given rash on back. OBJECTIVE: Vital Signs-as noted below Physical Exam: Vitals signs as noted above General Appearance:Moderately built and nourished, no apparent distress Head: normocephalic, Atraumatic Eyes: normal inspection, EOMI, PERRL Neck: supple, Trachea midline Respiratory/Chest: Normal breath sounds, CTA Cardiovascular: S1, S2, No murmur Abdomen/GI:Soft, Non tender, Bowel sounds present Extremities/Musculoskelatal:normal inspection, no edema Neurologic/Psych:AAOX3, grossly no focal neurological deficits Skin:diffuse maculopapular rash on the lower back, chest, abdomen, forearms, legs Lab data as noted below. ASSESSMENT & PLAN: Patient is a 76 yr old male with hypertension presents with double vision and generalized rash. POSSIBLE EARLY DISSEMINATED LYME DISEASE Presents with rash, diplopia Lyme screen positive Continue Ceftriaxone 2g IV daily Appreciate ID, Neuro input MRI brain:findings suggestive of demyelinating process Vs infectious: Likely secondary to Lyme disease serological work up for lyme pending May need lumbar puncture. HYPERTENSION continue Amlodipine DVT Px SCDs Code Status: Full code Disposition Plan to discharge home when medically stable Vital Signs: Date Time Temp Pulse Resp B/P Pulse Ox O2 Delivery O2 Flow Rate FiO2 10/04/16 08:04 Room Air 10/04/16 07:28 36.5 58 18 161/83 97 Room Air 10/04/16 04:00 Room Air 10/04/16 03:34 36.4 64 16 148/67 95 Room Air 10/04/16 00:00 36.7 61 16 139/70 96 Room Air 10/04/16 00:00 Room Air 10/03/16 20:00 97 Room Air 10/03/16 19:30 36.7 56 18 138/78 97 Room Air 10/03/16 16:00 97 Room Air 10/03/16 14:49 36.7 52 18 134/76 97 Room Air 10/03/16 12:00 Room Air 10/03/16 11:23 36.8 60 18 154/78 96 Room Air Lab Results: Results Past 24 Hours Test 10/04/16 06:19 Range/Units White Blood Count 6.89 4.8-10.8 K/uL Red Blood Count 4.03 4.7-6.1 M/uL Hemoglobin 12.4 14.0-18.0 g/dL Hematocrit 36.8 42-52 % Mean Corpuscular Volume 91.3 80-100 fL Mean Corpuscular Hemoglobin 30.8 25-34 pg Mean Corpuscular Hemoglobin Concent 33.7 32-36 g/dl Platelet Count 248 130-400 K/uL Mean Platelet Volume 10.5 7.4-10.4 fL Neutrophils (%) (Auto) 39.9 % Lymphocytes (%) (Auto) 44.7 % Monocytes (%) (Auto) 9.4 % Eosinophils (%) (Auto) 4.8 % Basophils (%) (Auto) 0.6 % Neutrophils # (Auto) 2.75 1.4-6.5 K/uL Lymphocytes # (Auto) 3.08 1.2-3.4 K/uL Monocytes # (Auto) 0.65 0.11-0.59 K/uL Eosinophils # (Auto) 0.33 0-0.5 K/uL Basophils # (Auto) 0.04 0-0.2 K/uL RDW Standard Deviation 46.4 36.4-46.3 fL RDW Coefficient of Variation 14.0 11.5-14.5 % Immature Granulocyte % (Auto) 0.6 % Immature Granulocyte # (Auto) 0.04 0.00-0.02 K/uL Sodium Level 140 136-145 mmol/L Potassium Level 3.6 3.5-5.1 mmol/L Chloride Level 104 98-107 mmol/L Carbon Dioxide Level 31 21-32 mmol/L Anion Gap 5.0 3-11 mmol/L Blood Urea Nitrogen 20 7-18 mg/dl Creatinine 0.89 0.60-1.40 mg/dl Est Creatinine Clear Calc Drug Dose 70.6 ml/min Estimated GFR () 94.9 Estimated GFR (Non- 81.9 BUN/Creatinine Ratio 22.9 10-20 Random Glucose 85 70-99 mg/dl Calcium Level 8.1 8.5-10.1 mg/dl
[2016-10-04 11:26] VITALS: BP 154/70; PULSE 55; TEMP 36.5; O2SAT 98
--- NOTE | 2016-10-04 14:32 | Progress Note ---
Subjective Date of Service: October 04, 2016. Subjective lp results pending. tolerating abx. afebrile. wbc nml. lyme western blot pending. neuro following as well. Problem List Medical Problems: (1) Diplopia Status: Acute (2) Hypertension Status: Chronic (3) Lyme disease Status: Acute (4) Rash Status: Acute Objective Vital Signs Date Time Temp Pulse Resp B/P Pulse Ox O2 Delivery O2 Flow Rate FiO2 10/04/16 12:12 Room Air 10/04/16 11:26 36.5 55 18 154/70 98 Room Air 10/04/16 08:04 Room Air 10/04/16 07:28 36.5 58 18 161/83 97 Room Air 10/04/16 04:00 Room Air 10/04/16 03:34 36.4 64 16 148/67 95 Room Air 10/04/16 00:00 36.7 61 16 139/70 96 Room Air 10/04/16 00:00 Room Air 10/03/16 20:00 97 Room Air 10/03/16 19:30 36.7 56 18 138/78 97 Room Air 10/03/16 16:00 97 Room Air 10/03/16 14:49 36.7 52 18 134/76 97 Room Air Laboratory Results Last 24 Hours Test 10/04/16 06:19 10/04/16 10:42 White Blood Count 6.89 K/uL Red Blood Count 4.03 M/uL Hemoglobin 12.4 g/dL Hematocrit 36.8 % Mean Corpuscular Volume 91.3 fL Mean Corpuscular Hemoglobin 30.8 pg Mean Corpuscular Hemoglobin Concent 33.7 g/dl Platelet Count 248 K/uL Mean Platelet Volume 10.5 fL Neutrophils (%) (Auto) 39.9 % Lymphocytes (%) (Auto) 44.7 % Monocytes (%) (Auto) 9.4 % Eosinophils (%) (Auto) 4.8 % Basophils (%) (Auto) 0.6 % Neutrophils # (Auto) 2.75 K/uL Lymphocytes # (Auto) 3.08 K/uL Monocytes # (Auto) 0.65 K/uL Eosinophils # (Auto) 0.33 K/uL Basophils # (Auto) 0.04 K/uL RDW Standard Deviation 46.4 fL RDW Coefficient of Variation 14.0 % Immature Granulocyte % (Auto) 0.6 % Immature Granulocyte # (Auto) 0.04 K/uL Sodium Level 140 mmol/L Potassium Level 3.6 mmol/L Chloride Level 104 mmol/L Carbon Dioxide Level 31 mmol/L Anion Gap 5.0 mmol/L Blood Urea Nitrogen 20 mg/dl Creatinine 0.89 mg/dl Est Creatinine Clear Calc Drug Dose 70.6 ml/min Estimated GFR () 94.9 Estimated GFR (Non- 81.9 BUN/Creatinine Ratio 22.9 Random Glucose 85 mg/dl Calcium Level 8.1 mg/dl Assessment and Plan (1) Lyme disease Assessment & Plan: continue ctx for now, follow lp results, pcr and western blot
--- NOTE | 2016-10-04 15:35 | DIAGNOSTIC IMAGING REPORT ---
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 A single fluoroscopic spot image submitted. PROCEDURE: The procedure, risks and benefits were discussed with the patient including the risk of spinal headache, bleeding and infection. The patient agreed to the procedure and informed written consent was obtained. The procedure was performed by Dr. Henning following a timeout. 1% lidocaine was used for local anesthesia. A 20-gauge x 3 1/2 in. Sprotte needle was used for the examination. The left L3-L4 and L2-L3 levels were attempted. However, cerebral spinal fluid was unable to be obtained despite the needle tip located in the expected location of the central canal. Therefore, the L5-S1 level was targeted and cerebral spinal fluid was obtained on the first pass. However, only 1 cc of cerebral spinal fluid was able to be drained despite placing the patient in reverse Trendelenburg. The patient tolerated the procedure well. There were no immediate complications. The specimen was sent to the laboratory at the request of the referring physician. IMPRESSION: Fluoroscopic guided lumbar puncture with removal of 1 cc of clear, colorless cerebral spinal fluid was described above. No immediate complications. Electronically signed by: Marco Henning M.D. 10/04/2016 3:33 PM Dictated Date/Time: 10/04/2016 3:30 PM
[2016-10-04 16:44] LABS: CSF APPEARANCE CLEAR; CSF COLOR PALE AMBER; CSF XANTHOCHROMIC SLIGHT
--- NOTE | 2016-10-04 16:56 | PROGRESS NOTE ---
DATE: 10/04/2016 DATE: 10/04/2016. I saw Gilles today. He just had his lumbar puncture under fluoroscopy. They were only able to get a single tube of CSF and apparently calls are in to infectious disease to prioritize exactly what testing is felt to be the most important. In my opinion basic cell count, the cultures, etc. and the usual testing for fungus acid fast and bacteria would be primary as if his serum Lyme titer is positive and the Western blot confirms that this is an acute illness, then treatment with ceftriaxone is going to be required, in particular if there are cells in the spinal fluid. The Lyme PCR, etc. in my opinion is a nice test, but is not essential to make a diagnosis in this setting. The spinal fluid is only important, therefore, to establish whether or not he has significant central nervous system or meningeal involvement to justify 3-4 weeks of IV antibiotics. 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 I will check back with him tomorrow. BRETT
[2016-10-04 19:33] VITALS: BP 134/70; PULSE 63; TEMP 36.7; O2SAT 97
[2016-10-04 23:38] VITALS: BP 147/71; PULSE 65; TEMP 36.6; O2SAT 97
[2016-10-05] MEDS: CEFTRIAXONE SOD INJ 2,000 MG in DEXTROSE 5% 50ML 50 ML IV SCH (03:19)
[2016-10-05 04:17] VITALS: BP 151/72; PULSE 61; TEMP 36.8; O2SAT 99
[2016-10-05 05:54] LABS: BASO % 0.3 %; BASO ABS # 0.02 K/uL (0-0.2); COMPLETE YES; EOS % 4.8 %; HEMATOCRIT 40.3 % (42-52); IG% 0.7 %; LYMPH % 38.1 %; LYMPH ABS # 2.91 K/uL (1.2-3.4); MEAN CELL VOLUME 90.2 fL (80-100); MEAN CORPUSCULAR HEMOGLOBIN 29.5 pg (25-34); MEAN CORPUSCULAR HGB CONC 32.8 g/dl (32-36); MONO % 9.6 %; NEUT % 46.5 %; PLATELET COUNT 266 K/uL (130-400); RED BLOOD COUNT 4.47 M/uL (4.7-6.1); WHITE BLOOD COUNT 7.64 K/uL (4.8-10.8)
[2016-10-05 06:30] LABS: BUN/CREATININE RATIO 22.4 (10-20); CALCIUM 8.2 mg/dl (8.5-10.1); CREATININE 0.96 mg/dl (0.60-1.40); POTASSIUM 3.9 mmol/L (3.5-5.1)
[2016-10-05 07:19] VITALS: BP 144/76; PULSE 53; TEMP 36.5; O2SAT 97
[2016-10-05] MEDS: CEROVITE ADV FORMULA TAB PO SCH (08:06)
[2016-10-05] MEDS: AMLODIPINE BESYLATE 5 MG TAB PO SCH (08:07)
--- NOTE | 2016-10-05 10:54 | Progress Note ---
Subjective Date of Service: October 05, 2016. Subjective Pt evaluation today including: conversation w/ patient, physical exam, chart review, lab review pt seen in followup, states he is feeling much better today. No f/c. still with some double vision but improving. LAROSE better as well. No neck stiffness. LP done yesterday, min fluid obtained, 38 wbc with lymph predominance. gram stain and culture pending. tolerating abx. states rash is improving as well. no n/v/d. asking to go home. wbc nml. CSF lyme pcr pending, confirmatory wb pending as well. all remaining ros reviewed and are negative. Problem List Medical Problems: (1) Diplopia Status: Acute (2) Hypertension Status: Chronic (3) Lyme disease Status: Acute (4) Rash Status: Acute Objective Vital Signs Date Time Temp Pulse Resp B/P Pulse Ox O2 Delivery O2 Flow Rate FiO2 10/05/16 08:00 Room Air 10/05/16 07:19 36.5 53 20 144/76 97 Room Air 10/05/16 04:17 36.8 61 20 151/72 99 Room Air 10/05/16 04:00 Room Air 10/05/16 00:00 Room Air 10/04/16 23:38 36.6 65 18 147/71 97 Room Air 10/04/16 20:00 Room Air 10/04/16 19:33 36.7 63 18 134/70 97 Room Air 10/04/16 16:00 Room Air 10/04/16 12:12 Room Air 10/04/16 11:26 36.5 55 18 154/70 98 Room Air Physical Exam General Appearance: WD/WN, no apparent distress Eyes: normal inspection, EOMI Neck: supple, + pertinent finding (no nuchal rigidity) Respiratory/Chest: lungs clear, normal breath sounds, no respiratory distress Cardiovascular: regular rate, rhythm, no edema Abdomen: non tender, soft Extremities: non-tender, no pedal edema Neurologic/Psychiatric: alert, oriented x 3 Skin: + pertinent finding (rash b/l ue. le improving) Laboratory Results Last 24 Hours Test 10/04/16 15:05 10/05/16 05:18 CSF Color PALE MARICEL CSF Appearance CLEAR CSF WBC 38 /uL CSF RBC 16 /uL CSF Polynuclear WBCs 1.0 % CSF Mononuclear WBCs 99.0 % CSF Xanthrochromic SLIGHT CSF Cell Count Tube # 1 White Blood Count 7.64 K/uL Red Blood Count 4.47 M/uL Hemoglobin 13.2 g/dL Hematocrit 40.3 % Mean Corpuscular Volume 90.2 fL Mean Corpuscular Hemoglobin 29.5 pg Mean Corpuscular Hemoglobin Concent 32.8 g/dl Platelet Count 266 K/uL Mean Platelet Volume 10.0 fL Neutrophils (%) (Auto) 46.5 % Lymphocytes (%) (Auto) 38.1 % Monocytes (%) (Auto) 9.6 % Eosinophils (%) (Auto) 4.8 % Basophils (%) (Auto) 0.3 % Neutrophils # (Auto) 3.56 K/uL Lymphocytes # (Auto) 2.91 K/uL Monocytes # (Auto) 0.73 K/uL Eosinophils # (Auto) 0.37 K/uL Basophils # (Auto) 0.02 K/uL RDW Standard Deviation 44.8 fL RDW Coefficient of Variation 13.7 % Immature Granulocyte % (Auto) 0.7 % Immature Granulocyte # (Auto) 0.05 K/uL Sodium Level 140 mmol/L Potassium Level 3.9 mmol/L Chloride Level 104 mmol/L Carbon Dioxide Level 31 mmol/L Anion Gap 5.0 mmol/L Blood Urea Nitrogen 22 mg/dl Creatinine 0.96 mg/dl Est Creatinine Clear Calc Drug Dose 65.5 ml/min Estimated GFR () 87.4 Estimated GFR (Non- 75.4 BUN/Creatinine Ratio 22.4 Random Glucose 86 mg/dl Calcium Level 8.2 mg/dl Assessment and Plan (1) Lyme disease Assessment & Plan: slightly abnormal findings on lp, culture and pcr pending. would suggest continue rocephin rather than transition to po doxy for remainder of therapy. would suggest 28 days total. will need picc line. pt agreeable to home IV abx if insurance approves. will follow.
[2016-10-05 11:39] VITALS: BP 137/64; PULSE 54; TEMP 37; O2SAT 97
[2016-10-05] MEDS ORDERED: CEFT1INJ57 IV (13:55)
--- NOTE | 2016-10-05 13:57 | Discharge Instructions ---
Discharge Instructions Date of Service October 05, 2016. Admission Reason for Admission: Lyme Disease Discharge Discharge Diagnosis / Problem: DISSEMINATED LYME WITH ORACLE TECHNICAL DEVELOPER INFECTION Discharge Goals Goal(s): Decrease discomfort, Diagnostic testing, Therapeutic intervention Activity Recommendations Activity Limitations: resume your previous activity . Instructions / Follow-Up Instructions / Follow-Up HOSPITAL FOLLOW UP ON 10/10/2016 @ 1:[address] Kika Alberto MD General Internal Medicine [facility] ( DR JAMISON'S SCHEDULE IS FULL ) INFECTIOUS DISEASE FOLLOW UP WITH DR CHERYL CHRISTIAN IN 2-3 WEEKS BEFORE COMPLETION OF ANTIBIOTIC PLEASE HAVE THE LABS RESULTS REVIEWED WITH HER ON OFFICE VISIT PLEASE CALL SOON POSSIBLE TO SCHEDULE APPOINTMENT YOUR PICC LINE WILL BE DISCONTINUED AFTER ANTIBIOTIC COURSE IS COMPLETED Current Hospital Diet Patient's current hospital diet: AHA Diet (Heart Healthy) Discharge Diet Recommended Diet: AHA Diet (Heart Healthy) Pending Studies Studies pending at discharge: yes List of pending studies: ORACLE TECHNICAL DEVELOPER LYME TITER WESTERN BLOT LYME Medical Emergencies . Who to Call and When: Medical Emergencies: If at any time you feel your situation is an emergency, please call 911 immediately. . Non-Emergent Contact Non-Emergency issues call your: Primary Care Provider . . "Provider Documentation" section prepared by Sheila Dias. . VTE Core Measure Inpt VTE Proph given/why not?: Liset Crowell, SCD's
[2016-10-05 14:13] VITALS: BP 137/64; PULSE 54; TEMP 37; O2SAT 97
--- NOTE | 2016-10-05 14:41 | Progress Note ---
Internal Med Progress Note Date of Service: October 05, 2016. Provider Documentation: SUBJECTIVE: feels fine , diplopia remains , but improved , no fever or chills , no headache no joint pain rash continues to recede evaluated by ID earlier , can be discharged home with IV Rocephin daily for total 28 days for Lyme disease with CLERICAL SPECIALIST involvement eager to be discharged home today OBJECTIVE: Vital Signs-as noted below Exam: General-no sign of distress Eyes-sclera non icteric , Diplopia on inward gaze , normal vision on lateral gaze and uniocular vision ENT-NAD Neck-no carotid bruit , no thyromegaly Lungs-CTA , no wheeze or rales Heart-regular S1/S2 Abdomen-soft ,non tender Extremities-diffuse rash on torso /upper and lower ext -improved as per pt's statement no itching , no bleeding noted Neuro-AAO x3,no focal deficit Lab data as noted below. ASSESSMENT & PLAN: POSSIBLE EARLY DISSEMINATED LYME DISEASE Presents with rash, diplopia Lyme screen positive; Western blot pending On IV Rocephin Appreciate ID, Neuro input MRI brain:findings suggestive of demyelinating process Vs infectious: Likely secondary to Lyme disease serological work up for lyme pending S/p lumbar puncture. shows elevated WBC count 38 in CSF , lyme PCR pending D/w ID pt can be discharged home with IV Rocephin for # 24 days ID follow in office to discuss pending lab report and assess improvement of disease with IV Abx PICC line placed arrangements made at [facility] for daily IV Rocephin tx HYPERTENSION continue Amlodipine Code Status: Full code DVT PROPHYLAXIS low risk SCD and teds ambulate DISPOSITION PICC line placed pt will come to [facility] every day for daily IV Rocephin stable to be discharged home today Medicine follow up with Dr Alberto at [facility] ID follow up with Dr Aj in 2-3 weeks Vital Signs: Lab Results:
--- NOTE | 2016-10-05 18:11 | PROGRESS NOTE ---
DATE: 10/05/2016 SUBJECTIVE: Gilles ready for discharge. I just had a long talk with he and his . 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 There are no other extraocular movements. Cranial nerves are otherwise intact. He has had normal reflexes, downgoing toes. No significant motor weakness or sensory loss. CSF did show 30 some white cells, most of which were lymphocytes, but there was insufficient amounts of fluid to do any further testing. I believe the Lyme PCR is pending, but that the fluid is described as slightly xanthochromic, so I suspect there was an elevated protein. PLAN: Appropriately to treat him with IV antibiotics for 4 weeks. He is going to follow up with infectious disease in 2 weeks and I would be happy to look at him neurologically if his nerve paresis does not resolve, but for now I do not think we need to do anything more neurologically. He did have the "abnormal MRI" that was read after the initial report that had been filed. I am suspicious that the images really are not that abnormal, but again I do not have access to a large PACS viewing unit to pick up man any subtleties and I will have to agree with the radiologists on their interpretation. At some point in the future, another MRI might be of some value to be sure that the lesions of presumptive Lyme disease have resolved. My experience with prior cases; however, is that these changes often take several months to resolve, so I would not vargas out here and start repeating studies within the next month or two, as long as he is clinically asymptomatic and has had adequate intravenous antibiotic treatment. I think a lot of his followup care is going to be done when he returns to [place] as he is in the process of transitioning between here and there, but again if infectious disease or his primary care team feels the neurology needs to follow up on him, I would be happy to do so. BRETT
--- NOTE | 2016-10-05 20:47 | Discharge Summary ---
Discharge Summary Date of Service October 05, 2016. Discharge Summary Admission Date: October 02, 2016 at 02:52 Discharge Date: October 05, 2016 Discharge Disposition: Home Principal Diagnosis: DISSEMINATED LYME DISEASE WITH ACADEMIC SUCCESS COORDINATOR INFECTION Procedures: MRI OF BRAIN 1. No acute intracranial findings. 2. No intracranial masses or pathologic enhancement. 3. Moderate white matter T2 hyperintense foci. While nonspecific, these statistically reflect small vessel disease. FLUOROSCOPIC GUIDED LUMBER PUNCTURE Consultations: NEUROLOGY DR STOVER ID DR CHRISTIAN Pending Studies/Follow-Up: Instructions / Follow-Up HOSPITAL FOLLOW UP ON 10/10/2016 @ 1:[address] Kika Alberto MD General Internal Medicine [facility] ( DR NOEL'S SCHEDULE IS FULL ) INFECTIOUS DISEASE FOLLOW UP WITH DR CHERYL CHRISTINA IN 2-3 WEEKS BEFORE COMPLETION OF ANTIBIOTIC PLEASE HAVE THE LABS RESULTS REVIEWED WITH HER ON OFFICE VISIT PLEASE CALL SOON POSSIBLE TO SCHEDULE APPOINTMENT YOUR PICC LINE WILL BE DISCONTINUED AFTER ANTIBIOTIC COURSE IS COMPLETED Medication Reconciliation New Medications: Ceftriaxone Sod (Rocephin) 1 Gm Inj 1 GM IV DAILY for 24 Days, #24 VIAL Continued Medications: Amlodipine (Norvasc) 10 Mg Tab 10 MG PO DAILY, TAB Cholecalciferol (Vitamin D3) 1,000 Unit Tab 1 TAB PO DAILY for 30 Days, #30 TAB 5 Refills Multivitamins/Minerals (Mvi With Minerals) Tab 1 TAB PO DAILY, TAB [Pomi-T] () 1 TAB PO DAILY Referrals At Discharge Follow up Referrals: Infectious Disease - Within 2 Weeks with Cheryl Christian.Padmini. Physician Referral - 10/10/16 with Kika ALBERTO M.D. Admission Information HPI (per Admitting provider): 76 year old male with hypertension presents with double vision and generalized rash. Follows with Dr. Noel for PCP. Patient was at his usual state of health until last week of August 2016, two days after arriving in [place], patient developed flu like symptoms- fever, headache, malaise. Symptoms resolved after a few days but would intermittently recur. During the first week of September, patient noticed circular rash on his chest and back, which later on moved and affected his arms, legs, abdomen. Two days ago, patient started to experience double vision but no other focal neurologic deficits or confusion. Denies joint pains. At the ER, CT head was unremarkable. Lyme screen was positive. He was started on Ceftriaxone IV. On exam, patient seen resting comfortably in bed, somewhat anxious. Has mild headache, no chest pain, dyspnea, palpitations, dizziness. No other symptoms. Physical Exam (per Admitting): General Appearance: WD/WN, no apparent distress Head: normocephalic, atraumatic Eyes: PERRL, sclerae normal, + pertinent finding (poor lateral ocular movement right) ENT: normal ENT inspection, hearing grossly normal, pharynx normal Neck: supple, no adenopathy, thyroid normal, no JVD Respiratory/Chest: chest non-tender, lungs clear, normal breath sounds, no respiratory distress, no accessory muscle use Cardiovascular: regular rate, rhythm, no edema, no gallop, no JVD, no murmur , normal peripheral pulses Abdomen/GI: normal bowel sounds, non tender, soft Back: normal inspection, no CVA tenderness Extremities/Musculoskelatal: normal inspection, no calf tenderness, normal capillary refill, no pedal edema Neurologic/Psych: no motor/sensory deficits, alert, normal mood/affect, oriented x 3, + abnormal systems analyst II-XII (diplopia, limited lateral eye movement, right) Skin: normal color, + pertinent finding ((+) diffuse maculopapular lesions on the lower back, chest, abdomen, forearms, legs) Lymphatic: no adenopathy Hospital Course POSSIBLE EARLY DISSEMINATED LYME DISEASE Presents with rash, diplopia Lyme screen positive; Western blot pending On IV Rocephin Appreciate ID, Neuro input MRI brain:findings suggestive of demyelinating process Vs infectious: Likely secondary to Lyme disease serological work up for lyme pending S/p lumbar puncture. shows elevated WBC count 38 in CSF , lyme PCR pending D/w ID pt can be discharged home with IV Rocephin for # 24 days ID follow in office to discuss pending lab report and assess improvement of disease with IV Abx PICC line placed arrangements made at [facility] for daily IV Rocephin tx HYPERTENSION continue Amlodipine Code Status: Full code DVT PROPHYLAXIS low risk SCD and teds ambulate DISPOSITION PICC line placed pt will come to [facility] every day for daily IV Rocephin stable to be discharged home today Medicine follow up with Dr Alberto at [facility] ID follow up with Dr Christian in 2-3 weeks Total time spent on discharge = 40 mins This includes examination of the patient, discharge planning, medication reconciliation, and communication with other providers. Discharge Instructions Discharge Instructions Date of Service October 05, 2016. Admission Reason for Admission: Lyme Disease Discharge Discharge Diagnosis / Problem: DISSEMINATED LYME WITH ACADEMIC SUCCESS COORDINATOR INFECTION Discharge Goals Goal(s): Decrease discomfort, Diagnostic testing, Therapeutic intervention Activity Recommendations Activity Limitations: resume your previous activity . Instructions / Follow-Up Instructions / Follow-Up HOSPITAL FOLLOW UP ON 10/10/2016 @ 1:[address] Kika Alberto MD General Internal Medicine [facility] ( DR NOEL'S SCHEDULE IS FULL ) INFECTIOUS DISEASE FOLLOW UP WITH DR CHERYL CHRISTIAN IN 2-3 WEEKS BEFORE COMPLETION OF ANTIBIOTIC PLEASE HAVE THE LABS RESULTS REVIEWED WITH HER ON OFFICE VISIT PLEASE CALL SOON POSSIBLE TO SCHEDULE APPOINTMENT YOUR PICC LINE WILL BE DISCONTINUED AFTER ANTIBIOTIC COURSE IS COMPLETED Current Hospital Diet Patient's current hospital diet: AHA Diet (Heart Healthy) Discharge Diet Recommended Diet: AHA Diet (Heart Healthy) Pending Studies Studies pending at discharge: yes List of pending studies: ACADEMIC SUCCESS COORDINATOR LYME TITER WESTERN BLOT LYME Medical Emergencies . Who to Call and When: Medical Emergencies: If at any time you feel your situation is an emergency, please call 911 immediately. . Non-Emergent Contact Non-Emergency issues call your: Primary Care Provider . . "Provider Documentation" section prepared by Sheila Dias. . VTE Core Measure Inpt VTE Proph given/why not?: Liset Crowell, SCD's Additional Copies To Kika ALBERTO M.D. Patterson, Jennifer.[place]
[2016-10-06] MEDS ORDERED: CEFT1INJ6 IV (09:18)
[2016-10-07 13:29] LABS: LYME DNA PCR CSF OR SYNOVIAL Not detected (Not Detected); LYME DNA SOURCE CSF
[2016-10-08 09:08] LABS: 18KDIGG BAND REACTIVE (NONREACTIVE); 23KDIGG BAND REACTIVE (NONREACTIVE); 23KDIGM BAND REACTIVE (NONREACTIVE); 28KDIGG BAND NONREACTIVE (NONREACTIVE); 30KDIGG BAND REACTIVE (NONREACTIVE); 39KDIGG BAND REACTIVE (NONREACTIVE); 39KDIGM BAND REACTIVE (NONREACTIVE); 41KDIGG BAND REACTIVE (NONREACTIVE); 41KDIGM BAND REACTIVE (NONREACTIVE); 45KDIGG BAND REACTIVE (NONREACTIVE); 58KDIGG BAND NONREACTIVE (NONREACTIVE); 66KDIGG BAND REACTIVE (NONREACTIVE); 93KDIGG BAND NONREACTIVE (NONREACTIVE)
== END 2016-10-05 15:30 | disposition home or self-care (01) | DRG 869 ==
LOC: ENRESERVTM → ENRESERVDT → C.EDB 21:03 → C.MED 10-02 02:52 → EDBEDREQ 10-02 03:01
PROVIDERS: ADMIT Internal Medicine; ATTEND Hospitalist
PROC: 009U3ZX Drainage of Spinal Canal, Percutaneous Approach, Diagnostic (ICD-10-PCS; 2016-10-04)
PROC: 02HV33Z Insertion of Infusion Device into Superior Vena Cava, Percutaneous Approach (ICD-10-PCS; principal; 2016-10-05)
DX: A69.22 Other neurologic disorders in Lyme disease (principal); H53.2 Diplopia; I10 Essential (primary) hypertension; Z83.3 Family history of diabetes mellitus; R21 Rash and other nonspecific skin eruption